=== PATIENT | female | born 1960 | race Caucasian/White ===

== ENCOUNTER → 2016-11-29 | Outpatient (CLI) | payer OTHER ==
--- NOTE | 2016-11-29 09:22 | CT ---
EXAMINATION TYPE: CT urogram wo/w con DATE OF EXAM: 11/29/2016 8:59 AM COMPARISON: NONE HISTORY: Microscopic hematuria CT DLP: 2755 mGycm Automated exposure control for dose reduction was used. CONTRAST: Performed without and with IV Contrast, patient injected with 100 ml mL of Omnipaque 300. FINDINGS: Visualized portions of the lungs are clear. There is no pleural or pericardial fluid. Within the abdomen, the gallbladder has been removed. Liver and spleen are normal. Both adrenal glands are normal. There is no evidence of nephrolithiasis. Both kidneys demonstrate function is a 1.5 cm low attenuatin g lesion in the anterior aspect of the upper pole of the left kidney. This does not meet the requirem ents of a simple cyst. There is a 8.7 mm low attenuating lesion in the medial aspect of the lower marian e of the right kidney. This also does not meet the requirements for simple cyst. There are several 3 to 4 mm low attenuating lesions within the left kidney which are too small to characterize. The right ureter is incompletely visualized. The pancreas is unremarkable. There is some shotty periaortic adenopathy. There are no pathologically enlarged lymph nodes. There i s no iliac or inguinal adenopathy. The bladder is unremarkable. There are numerous diverticula within the sigmoid colon without radiographic evidence of diverticulit is. The appendix is not visualized with certainty. Small bowel loops are normal. There is no free fluid and no free air identified. There are mild retrogradely cc of L2 on L3 and L3 on L4. There is a grade 1 degenerative spondylolist hesis of L4 on L5. This hypertrophic spondylosis in the lower dorsal spine. There is extensive facet arthropathy in the lower lumbar spine. IMPRESSION: 1. MULTIPLE LOW ATTENUATING LESIONS IN BOTH KIDNEYS WHICH DO NOT MEET THE REQUIREMENTS OF SIMPLE CYST S. MRI OF THE KIDNEYS WOULD BE SUGGESTED. 2. UNCOMPLICATED DIVERTICULOSIS OF THE SIGMOID COLON. 3. DEGENERATIVE CHANGES WITHIN THE SPINE.
== END | disposition home or self-care (01) ==
LOC: RADCTMAIN 08:02
PROVIDERS: ATTEND Urology
DX: N28.89 Other specified disorders of kidney and ureter (principal); K57.30 Diverticulosis of large intestine without perforation or abscess without bleeding; R31.29 Other microscopic hematuria
CPT/HCPCS: 74178; 74400; Q9967

== ENCOUNTER → 2016-12-14 | Outpatient (CLI) | payer OTHER ==
[2016-12-14 13:29] LABS: Basophils # (A) 0.1 k/uL (0-0.2); Basophils % (A) 1 %; CH 33.7; CHCM 33.5; Eosinophils # (A) 0.1 k/uL (0-0.7); Eosinophils % (A) 1 %; HCT 51.2 % (34.0-46.0); HDW 2.39; HGB 16.3 gm/dL (11.4-16.0); Luc % (Auto) 3; Lymphocytes # (A) 2.1 k/uL (1.0-4.8); Lymphocytes % (A) 24 %; MCH 32.2 pg (25.0-35.0); MCHC 31.9 g/dL (31.0-37.0); MCV 101.1 fL (80.0-100.0); Mean Platelet Volume 6.9; Monocytes # (A) 0.5 k/uL (0-1.0); Monocytes % (A) 6 %; Neutrophils # (A) 5.9 k/uL (1.3-7.7); Neutrophils % (A) 66 %; RBC 5.07 m/uL (3.80-5.40); RDW 12.9 % (11.5-15.5); WBC (Perox) 9.13
[2016-12-14 13:41] LABS: ALT 27 U/L (9-52); AST 22 U/L (14-36)
== END | disposition home or self-care (01) ==
LOC: LABWHC1 12:42
DX: B35.1 Tinea unguium (principal)
CPT/HCPCS: 36415; 84450; 84460; 85025

== ENCOUNTER → 2017-08-22 | Outpatient (CLI) | payer OTHER ==
--- NOTE | 2017-08-22 08:29 | US ---
EXAMINATION TYPE: US abdomen complete DATE OF EXAM: 08/22/2017 COMPARISON: CT Urogram 2-22-2-17. CLINICAL HISTORY: Abdominal Pain R10.9. rt flank pain that radiates inferiorly x 3 yrs EXAM MEASUREMENTS: Liver Length: 14.6 cm CBD: 0.8 cm Spleen: 9.0 cm Right Kidney: 10.2 x 3.3 x 4.8 cm Left Kidney: 10.4 x 4.9 x 5.1 cm Pancreas: Obscured by bowel gas Liver: wnl Gallbladder: Surgically absent CBD: wnl for post fadia Spleen: wnl Right Kidney: wnl Left Kidney: wnl Upper IVC: wnl Abd Aorta: wnl as seen The visualized liver is slightly heterogeneous. The intrahepatic portion of the IVC and proximal abd ominal aorta are within normal limits. There is no evidence of cholelithiasis. Common bile duct is unremarkable. The pancreas is obscured by overlying bowel gas and is thus suboptimally evaluated. T he spleen is unremarkable. Kidneys are symmetric and free of hydronephrosis. No renal lesions are s een on images saved. Subcentimeter lesions on CT are less well seen on ultrasound. Presumed benign. IMPRESSION: No suspicious finding is seen to account for patient's symptoms.
== END | disposition home or self-care (01) ==
LOC: RADUSWWP 07:39
PROVIDERS: ATTEND Family Medicine
DX: R10.9 Unspecified abdominal pain (principal)
CPT/HCPCS: 76700

== ENCOUNTER 2019-03-11 17:38 | Emergency (ER) | payer OTHER ==
[2019-03-11 18:16] VITALS: BP 113/83; PULSE 86; RESP 20; TEMP 98.3
--- NOTE | 2019-03-11 19:32 | ED ---
General Adult HPI - General Chief complaint: Extremity Injury, Lower Stated complaint: US on left leg Time Seen by Provider: 03/11/19 18:31 Source: patient Mode of arrival: ambulatory Limitations: no limitations - History of Present Illness Initial comments: Patient is a 59-year-old female with a history of COPD is present to emergency department with a left lower extremity edema. Patient reports yesterday she was discharged after a 3 day stay in the hospital for COPD exacerbation. Patient reports overnight she developed lower extremity swelling along with dull, achy pain along the calf and the popliteal region. Patient reports slight shortness of breath but states that is her baseline due to her COPD. Patient denies skin discoloration in the left lower leg, muscle weakness, numbness or tingling. Patient denies taking any medication to alleviate the pain. Patient denies fever, chest pain, chest tightness, heart palpitations, headache, lightheadedness, dizziness. Patient denies taking exogenous estrogens. - Related Data Allergies Allergy/AdvReac Type Severity Reaction Status Date / Time No Known Allergies Allergy Verified 03/11/19 18:16 Review of Systems ROS Statement: Those systems with pertinent positive or pertinent negative responses have been documented in the HPI. ROS Other: All systems not noted in ROS Statement are negative. Past Medical History Past Medical History: Asthma, Cancer, COPD History of Any Multi-Drug Resistant Organisms: None Reported Past Surgical History: Cholecystectomy, Orthopedic Surgery, Tubal Ligation Past Psychological History: No Psychological Hx Reported Smoking Status: Current every day smoker Past Alcohol Use History: Occasional Past Drug Use History: None Reported General Exam Limitations: no limitations General appearance: alert, in no apparent distress Head exam: Present: atraumatic, normocephalic, normal inspection Eye exam: Present: normal appearance, PERRL, EOMI Pupils: Present: normal accommodation ENT exam: Present: normal exam Neck exam: Present: normal inspection Respiratory exam: Present: normal lung sounds bilaterally, wheezes (Mild). Absent: respiratory distress, rales Cardiovascular Exam: Present: regular rate, normal rhythm, normal heart sounds Left Upper Leg exam: Present: normal inspection, full ROM Knee exam: Present: normal inspection, full ROM Lower Leg exam: Present: full ROM, swelling (edema), Homans' sign. Absent: laceration, ecchymosis, deformity, erythema Foot/Toe exam: Present: normal inspection, full ROM Neurovascular tendon exam: Present: no vascular compromise Gait: observed and normal Back exam: Present: normal inspection, full ROM Neurological exam: Present: alert, oriented X3 Psychiatric exam: Present: normal affect, normal mood Skin exam: Present: warm, intact, normal color Course Vital Signs 03/11/19 18:11 Temperature 98.3 F Pulse Rate 86 Respiratory 20 Rate Blood Pressure 113/83 O2 Sat by Pulse 99 Oximetry Medical Decision Making - Medical Decision Making Patient is 59-year-old female presenting to emergency Department with left lower leg edema. Doppler ultrasound is negative for DVT. Patient was given Toradol and reports improvement in the pain. Based physical examination I do not see signs of an infection. Patient advised to keep leg elevated and alternate between Tylenol and ibuprofen for pain control. Patient advised to follow with orthopedics. Patient advised to return to emergency department if symptoms worsen. Case discussed with physician. Disposition Clinical Impression: Lower extremity pain, left Disposition: HOME SELF-CARE Condition: Stable Instructions (If sedation given, give patient instructions): Leg Pain (ED) Additional Instructions: Please alternate between Tylenol and ibuprofen for pain control. Keep leg elevated to help with swelling. Please return to emergency department if symptoms worsen. These follow with orthopedics. Is patient prescribed a controlled substance at d/c from ED?: No Referrals: Thomas Curiel DO [Primary Care Provider] - 1-2 days Dillon Ackerman DO [Doctor of Osteopathic Medicine] - 1-2 days Time of Disposition: 21:31
[2019-03-11] MEDS: KETOROLAC 30 MG/ML 1 ML VIAL IVP STA ×2 (20:15→20:18)
[2019-03-11] MEDS ORDERED: KETOROLAC 30 MG/ML 1 ML VIAL IM STA (20:18)
--- NOTE | 2019-03-11 21:07 | US ---
EXAMINATION TYPE: US venous doppler duplex LE LT DATE OF EXAM: 03/11/2019 7:50 PM COMPARISON: NONE CLINICAL HISTORY: Pain. Left leg pain and swelling. SIDE PERFORMED: Left TECHNIQUE: The lower extremity deep venous system is examined utilizing real time linear array sonog audrey with graded compression, doppler sonography and color-flow sonography. VESSELS IMAGED: External Iliac Vein (EIV) Common Femoral Vein Deep Femoral Vein Greater Saphenous Vein * Femoral Vein Popliteal Vein Small Saphenous Vein * Proximal Calf Veins (* superficial vessels) FINDINGS: Grayscale, color doppler, spectral doppler imaging performed of the deep veins of the lower extremities. There is normal flow, compressibility, vascular waveforms. IMPRESSION: Negative for DVT, left lower extremity.
== END 2019-03-11 21:41 | disposition home or self-care (01) ==
LOC: EC 17:38
DX: M79.605 Pain in left leg (principal); R60.0 Localized edema; R06.02 Shortness of breath; F17.200 Nicotine dependence, unspecified, uncomplicated; Z87.09 Personal history of other diseases of the respiratory system; Z85.9 Personal history of malignant neoplasm, unspecified; Z53.8 Procedure and treatment not carried out for other reasons
CPT/HCPCS: 93971; 99283; 96372; J1885

== ENCOUNTER → 2019-04-17 | Outpatient (CLI) | payer OTHER ==
--- NOTE | 2019-04-21 08:25 | MM ---
Reason for exam: screening (asymptomatic). Last mammogram was performed 1 year and 7 months ago. History: Patient is postmenopausal and has history of other cancer at age 28. Physical Findings: A clinical breast exam by your physician is recommended on an annual basis and results should be correlated with mammographic findings. MG 3D Screening Mammo W/Cad Bilateral CC and MLO view(s) were taken. Prior study comparison: September 18, 2017, mammogram. May 08, 2016, mammogram. There are scattered fibroglandular densities. No significant changes when compared with prior studies. ASSESSMENT: Benign, BI-RAD 2 RECOMMENDATION: Routine screening mammogram of both breasts in 1 year.
== END | disposition home or self-care (01) ==
LOC: RADMAMWWP 13:39
PROVIDERS: ATTEND Family Medicine
DX: Z12.31 Encounter for screening mammogram for malignant neoplasm of breast (principal)
CPT/HCPCS: 77063; 77067

== ENCOUNTER → 2019-07-12 | Outpatient (CLI) | payer MEDICARE, OTHER ==
--- NOTE | 2019-07-12 14:24 | CT ---
EXAMINATION TYPE: CT chest w con DATE OF EXAM: 07/12/2019 COMPARISON: None HISTORY: Abnormal CXR CT DLP: 494.8 mGycm Automated exposure control for dose reduction was used. CONTRAST: CT scan of the chest is performed with IV Contrast, patient injected with 100 mL of Isovue 300. FINDINGS: There is a 4 x 2.5 cm somewhat spiculated cavitating infiltrate left upper lobe extending to the left pulmonary hilum. There is diffuse pulmonary emphysema. Infiltrate extends to the pleura of the left upper lobe. Heart size is normal. There is no pericardial effusion. There is no pneumothorax. There i s no pleural effusion. There are clips from cholecystectomy. There are some spondylotic changes in th e thoracic spine. There are no hilar masses. There is no mediastinal adenopathy. Thoracic aorta is in tact. There is no aneurysm or dissection. There is no sign of a central pulmonary embolism. IMPRESSION: Pulmonary emphysema. Spiculated linear cavitating infiltrate left upper lobe. I would co nsider possibilities of scarring and atypical pneumonia and malignancy. Follow-up recommended.
== END | disposition home or self-care (01) ==
LOC: RADCTMAIN 13:05
PROVIDERS: ATTEND Family Medicine
DX: R91.8 Other nonspecific abnormal finding of lung field (principal); J43.9 Emphysema, unspecified
CPT/HCPCS: 71260; Q9967

== ENCOUNTER → 2021-08-26 | Outpatient (CLI) | payer MEDICARE, OTHER ==
--- NOTE | 2021-08-28 16:41 | US ---
EXAMINATION TYPE: US venous doppler duplex LE BI DATE OF EXAM: 08/26/2021 2:33 PM COMPARISON: NONE CLINICAL HISTORY: 61-year-old female R60.0 EDEMA. SIDE PERFORMED: Bilateral TECHNIQUE: The lower extremity deep venous system is examined utilizing real time linear array sonog audrey with graded compression, doppler sonography and color-flow sonography. FINDINGS: VESSELS IMAGED: Common Femoral Vein Deep Femoral Vein Greater Saphenous Vein * Femoral Vein Popliteal Vein Small Saphenous Vein * Proximal Calf Veins (* superficial vessels) Right Leg: Negative for DVT Left Leg: Negative for DVT IMPRESSION: No evidence for DVT within the bilateral lower extremities imaged from the groin to the upper calves.
== END | disposition home or self-care (01) ==
LOC: RADUSWWP 14:05
PROVIDERS: ATTEND Family Medicine
DX: R60.0 Localized edema (principal)
CPT/HCPCS: 93970

== ENCOUNTER → 2023-01-19 | Outpatient (CLI) | payer MEDICARE ==
--- NOTE | 2023-01-19 17:04 | CTL ---
EXAMINATION TYPE: CT Low Dose Lung DATE OF EXAM ORDERED: 01/19/2023 HISTORY: F17.211. Lung cancer screening CT DLP: 82.[address] CTDI: 2.6 mGy Automated exposure control for dose reduction was used. SCREENING VISIT: First screening visit. COMPARISON: CT chest 07/12/2019. TECHNIQUE: Low dose computed tomography scan was performed through the chest at 1 mm thick sections a nd reconstructed images in multiple planes at 1 mm and [address] DIAGNOSTIC QUALITY: Satisfactory FINDINGS: LUNG NODULES: Similar somewhat spiculated left upper lobe elongated density (series 3, image 49). Thi s measures grossly 4.9 x 1.4 cm. Is associated traction bronchiectasis and extension towards the pulm onary hilum. Calcified granuloma within the right midlung. No other clinically significant pulmonary nodules. LUNGS: COPD: Severity: Moderate Fibrosis: Severity: Moderate Lymph nodes: None Other findings: None RIGHT PLEURAL SPACE: Effusion: None Calcification: None Thickening: None Pneumothorax: None LEFT PLEURAL SPACE: Effusion: None Calcification: None Thickening: None Pneumothorax: None HEART: Heart Size: Normal Coronary Calcification: None Pericardial Effusion: None OTHER FINDINGS: Upper abdomen: None Bony thorax: None Supraclavicular region: None Other: None IMPRESSION: 1. Relatively unchanged elongated spiculated density within the left upper lobe favored to represent scarring due to stability from 2019 exam. 2. No clinically significant pulmonary nodules. 3. Moderate COPD changes. CT LUNG RAD AND CT CHEST RECOMMENDATION: Lung-Rad 2 Benign Appearance or Behavior: Continue annual sc reening with LDCT in 12 months. S Modifier (other clinically significant findings): None
== END | disposition home or self-care (01) ==
LOC: RADCTMAIN 16:31
PROVIDERS: ATTEND Internal Medicine
DX: Z12.2 Encounter for screening for malignant neoplasm of respiratory organs (principal); J44.9 Chronic obstructive pulmonary disease, unspecified; J98.4 Other disorders of lung; F17.211 Nicotine dependence, cigarettes, in remission
CPT/HCPCS: 71271